=== PATIENT | male | born 1950 | race Caucasian/White ===

== ENCOUNTER 2018-07-04 12:37 | Emergency (ER) | payer MEDICARE, MEDICAID ==
[2018-07-04] MEDS ORDERED: ACETAMINOPHEN 1,000 MG/100 ML BTL IVPB ONE (13:04)
--- NOTE | 2018-07-04 13:04 | Emergency Department Record ---
History of Present Illness - General Chief Complaint: Back Pain/Injury Stated Complaint: BACK PAIN Time Seen by Provider: 07/04/18 12:50 Source: Patient Mode of Arrival: Ambulatory Limitations: No limitations - History of Present Illness Initial Comments: The patient is here due to low back pain for 2-3 weeks. The pain is aching and bilateral in the low back. It is worse with sitting up and movement. There is no real radiation to the legs and no leg numbness, weakness, or any bowel or bladder issues. He denies any fever, chills, AP, hematuria, or diarrhea but has had mild dysuria. The patient also is complaining of foot pain from Neuropathy for months and states his Gabapentin is not working. MD Complaint: Back pain Onset/Timin -: Week(s) Similar Symptoms Previously: Yes Radiation: Flank, Other Severity: Moderate Severity scale (1-10): 8 Consistency: Constant Improves With: None Worsens With: Movement, Sitting upright Context: Unknown Associated Symptoms: Denies other symptoms - Related Data Home Medications Medication Instructions Recorded Confirmed Last Taken Gabapentin [Neurontin] 600 mg PO TID 07/04/18 07/04/18 Unknown Trazodone HCl [Desyrel] 50 mg PO QHS 07/04/18 07/04/18 Unknown Allergies Allergy/AdvReac Type Severity Reaction Status Date / Time No Known Drug Allergies Allergy Verified 07/04/18 12:49 Travel Screening - Travel/Exposure Within Last 30 Days Have you traveled within the last 30 days?: No Review of Systems Constitutional: Denies: Chills, Fever Eyes: Denies: Eye discharge ENT: Denies: Congestion Respiratory: Denies: Cough, Dyspnea Past Medical History - SOCIAL HISTORY Smoking Status: Never smoker Alcohol Use: None Drug Use Detail:: Marijuana - RESPIRATORY Hx Respiratory Disorders: No - CARDIOVASCULAR Hx Cardio Disorders: No - NEURO Hx Neuro Disorders: Yes Comment:: brain encephalitis - GI Hx GI Disorders: Yes Hx Ulcer: Yes - Hx Genitourinary Disorders: Yes Hx Kidney Stones: Yes - ENDOCRINE Hx Endocrine Disorders: Yes Hx Diabetes: Yes (type 2) - PSYCH Hx Psych Problems: No - HEMATOLOGY/ONCOLOGY Hx Hematology/Oncology Disorders: No Family Medical History Any Significant Family History?: No Physical Exam - General General Appearance: Alert, Oriented x3, Cooperative, No acute distress - Head Head exam: Atraumatic, Normocephalic - Eye Eye exam: Normal appearance, PERRL - Neck Neck exam: Normal inspection, Full ROM. negative: Tenderness - Respiratory Respiratory exam: Normal lung sounds bilaterally. negative: Respiratory distress - Cardiovascular Cardiovascular Exam: Regular rate, Normal rhythm, Normal heart sounds - GI/Abdominal GI/Abdominal exam: Soft, Normal bowel sounds. negative: Guarding, Rebound, Rigid, Tenderness - Extremities Extremities exam: Normal inspection, Full ROM, Normal capillary refill. negative: Tenderness - Back Back exam: Reports: Normal inspection, Paraspinal tenderness. Denies: Vertebral tenderness - Neurological Neurological exam: Alert, Normal gait, Oriented X3, Reflexes normal. negative: Abnormal gait, Altered, Motor sensory deficit - Psychiatric Psychiatric exam: negative: Anxious Course Vital Signs 07/04/18 12:44 Temperature 98.0 F Pulse Rate 101 H Respiratory 20 Rate Blood Pressure 130/81 Pulse Ox 99 - Reevaluation(s) Reevaluation #1: The patient is doing well at this time. He is resting comfortably and denies any new pain. I did discuss the plan with the patient and the need to see his PCP next week for further evaluation. 07/04/18 14:48 Medical Decision Making - Data Complexity MDM Data: Labs Ordered and/or Reviewed, X-Ray Ordered and/or Reviewed - Lab Data Result diagrams: 07/04/18 12:50 07/04/18 12:50 - Radiology Data Radiology results: Report reviewed (LS Spine: Mild L4-5 DDD, O/W neg. Abd CT: Mild disc bulging at L5-S1, discoid atelectasis R lung base, O/W neg.) Disposition Disposition: Discharge Clinical Impression: Chronic pain disorder Disposition: Home, Self-Care Condition: (2) Stable Instructions: Chronic Pain (ED) Additional Instructions: Please continue your regular medicines and use tylenol for pain. Please see your family doctor NABIL for further evaluation and also to have your Type 2 diabetes evaluated. Return to the ER for any worsening symptoms. Please bring your official xray and CT reports to your family doctor for further evaluation. Forms: Patient Portal Access Time of Disposition: 14:50 Quality - Quality Measures Quality Measures: N/A - Blood Pressure Screening View Details: Yes Does Patient Have Any of the Following: No Blood Pressure Classification: Normal BP Reading Systolic Measurement: 115 Diastolic Measurement: 75 Screening for High Blood Pressure: < Normal BP, F/U Not Required > [[id number]]
[2018-07-04 13:07] LABS: BASO % 0.6 % (0-6); GRAN % 71.5 % (47-80); HEMOGLOBIN 13.8 gm/dl (14.0-18.0); LYMPH % 21.2 % (16-45); MEAN CELL VOLUME 88.9 fl (81-97); MEAN CORPUSCULAR HEMOGLOBIN 29.9 pg (27-33); MEAN CORPUSCULAR HGB CONC 33.7 g/dl (32-36); MEAN PLATELET VOLUME 9.2 fl (7.4-10.4); MONO % 5.7 % (0-9); PLATELET COUNT 354 K/uL (130-400); RED BLOOD COUNT 4.61 M/uL (4.40-5.70); RED CELL DISTRIBUTION WIDTH 13.2 % (11.5-14.5); WHITE BLOOD COUNT W/O DIFF 10.3 K/uL (4.2-12.2)
[2018-07-04 13:09] LABS: URINE APPEARANCE CLEAR; URINE BILIRUBIN NEGATIVE (NEGATIVE); URINE BLOOD NEGATIVE (NEGATIVE); URINE COLOR YELLOW; URINE KETONE NEGATIVE (NEGATIVE); URINE LEUKOCYTE ESTERASE NEGATIVE (NEGATIVE); URINE NITRITE NEGATIVE (NEGATIVE); URINE PROTEIN NEGATIVE (NEGATIVE); URINE UROBILINOGEN 0.2 E.U./dL (0.20 - 1.00)
[2018-07-04 13:20] LABS: BLOOD UREA NITROGEN 12 mg/dL (8-23); EST GLOMERULAR FILTRATION RATE > 60 mL/min
[2018-07-04 13:21] LABS: TOTAL PROTEIN 7.2 g/dL (6.6-8.7)
[2018-07-04 13:23] LABS: GLUCOSE,RANDOM 242 mg/dL (74-109)
[2018-07-04 13:25] LABS: ALT/SGPT 13 U/L (<41)
[2018-07-04 13:26] LABS: ALB/GLOB RATIO 1.7 (1.1-1.8); ALBUMIN 4.5 g/dL (4.0-5.0); ALKALINE PHOSPHATASE 110 U/L (55-149); AST/SGOT 13 U/L (10.0-50.0); C-REACTIVE PROTEIN 0.27 mg/dL (<0.5)
--- NOTE | 2018-07-05 10:19 | RADIOLOGY REPORT ---
EXAM: LUMBOSACRAL SPINE HISTORY: BACK PAIN. TECHNIQUE: AP and lateral views of the lumbosacral spine were performed. FINDINGS: Mild degenerative change at L4-L5. No evidence of fracture. No spondylolysis or spondylolisthesis. IMPRESSION: MILD DEGENERATIVE CHANGE AT L4-L5. THE REMAINDER OF THE EXAMINATION IS UNREMARKABLE. JOB NUMBER: [id number] MTDD
--- NOTE | 2018-07-05 10:27 | CT SCAN REPORT ---
EXAM: CT OF THE ABDOMEN AND PELVIS WITHOUT CONTRAST HISTORY: LOW BACK PAIN. TECHNIQUE: Sequential axial images were obtained from the diaphragms through the ischiorectal fossa without intravenous or oral contrast administration. FINDINGS: There is a linear opacity in the right lung base. Nonopacified liver , gallbladder, pancreas, and spleen appear normal. The adrenal glands appear normal. There are nonobstructing calculi in both kidneys. There are no CT findings suggestive of obstructive uropathy. The urinary bladder appears normal. Postop surgical clips in the right lower quadrant consistent with previous appendectomy. The small bowel appears normal. The colon appears normal. There is minor disk bulging at L5-S1. No evidence of hernia. No fracture. IMPRESSION: 1. NONOBSTRUCTING CALCULI IN BOTH KIDNEYS. NO CT FINDINGS SUGGESTIVE OF OBSTRUCTIVE UROPATHY. LINEAR OPACITY RIGHT LUNG BASE. 2. MINOR DISK BULGING AT L5-S1. JOB NUMBER: [id number] MTDD
== END 2018-07-04 14:59 | disposition home or self-care (01) ==
LOC: ER 12:37
DX: G89.4 Chronic pain syndrome (principal); M54.5 Low back pain; R30.0 Dysuria; E11.9 Type 2 diabetes mellitus without complications
CPT/HCPCS: 72100; 74176; 80053; 81003; 85025; 86140; 96365; 99284